=== PATIENT | male | born 1965 | race Caucasian/White ===

== ENCOUNTER → 2017-04-02 06:37 | Outpatient (CLI) | payer OTHER | END | disposition home or self-care (01) | LOC: D.SLEEP 06:37 | DX: G47.33 Obstructive sleep apnea (adult) (pediatric) (principal) ==

== ENCOUNTER 2019-12-14 16:48 | Inpatient (IN) | payer MEDICAID ==
[~2019-12-14] VITALS: Ht 170.2 cm; Wt 122.5 kg
[2019-12-14] MEDS ORDERED: LISINOPRIL40 MG PO (17:03)
[2019-12-14] MEDS ORDERED: GLUCOPHAGE500 MG PO (17:03)
[2019-12-14] MEDS ORDERED: FLOMAX0.4 MG PO (17:03)
[2019-12-14] MEDS ORDERED: CHLORTHALIDONE25 MG PO (17:04)
[2019-12-14] MEDS ORDERED: LIPITOR10 MG PO (17:04)
[2019-12-14] MEDS ORDERED: COREG12.5 MG PO (17:04)
[2019-12-14] MEDS ORDERED: BAYER CHEWABLE81 MG PO (17:04)
[2019-12-14] MEDS ORDERED: ZOLOFT100 MG PO (17:05)
[2019-12-14 17:09] LABS: BASOPHILS 0.5 % (0-2); HEMOGLOBIN 14.9 g/dL (13.5-17.5); IMMATURE GRANULOCYTES 0.1 % (0-5); LYMPHOCYTES 24.7 % (15-50); MCH 29.4 pg (26.0-34.0); MCHC 33.9 g/dL (31.0-37.0); MCV 86.8 fL (80.0-100.0); MEAN PLATELET VOLUME 10.5 fL (7.4-10.4); MONOCYTES 8.4 % (2-11); NEUTROPHILS 64.3 % (40-80); PLATELET COUNT 140 10x3/uL (130-400); RBC 5.07 10x6/uL (4.20-6.10); RDW 13.2 % (11.5-14.5); WBC 7.5 10x3/uL (4.8-10.8)
[2019-12-14 17:17] LABS: INR 0.98 (0.85-1.17); PROTIME 12.9 SECONDS (11.6-15.0)
[2019-12-14 17:18] LABS: APTT 28.3 SECONDS (22.8-39.4); CALC OSMOLALITY 276 mosm/kg (275-300); CALCIUM 8.6 mg/dL (8.5-10.1); CARBON DIOXIDE 28.7 mmol/L (21.0-32.0); CHLORIDE - SERUM 104 mmol/L (98-107); CREATININE - SERUM 0.9 mg/dL (0.6-1.3); GLUCOSE 123 mg/dL (74-106); POTASSIUM - SERUM 4.1 mmol/L (3.5-5.1); SODIUM 138 mmol/L (136-145); UREA NITROGEN 12 mg/dL (7-18); eGFR NON AFRICAN AMERICAN > 90 mL/min (90-120)
[2019-12-14 17:31] LABS: ALBUMIN 3.8 g/dL (3.4-5.0); ALKALINE PHOSPHATASE 76 U/L (30-120); ALT (SGPT) 37 U/L (10-68); AMYLASE - SERUM 34 U/L (25-115); BILIRUBIN - TOTAL 0.44 mg/dL (0.2-1.3); LIPASE 82 U/L (73-393); PRO BNP 61 pg/mL (0-125); PROTEIN - SERUM 7.4 g/dL (6.4-8.2)
[2019-12-14 17:47] LABS: TROPONIN-I < 0.017 ng/mL (0.000-0.060)
[2019-12-14] MEDS ORDERED: METFORMIN HCL500 M1 PO (23:52)
[2019-12-15 01:51] VITALS: BP 138/72; BMI 42.4
[2019-12-15 02:37] LABS: BILIRUBIN NEGATIVE (NEGATIVE); GLUCOSE NEGATIVE (NEGATIVE); KETONE NEGATIVE (NEGATIVE); NITRITE NEGATIVE (NEGATIVE); SPECIFIC GRAVITY 1.015 (1.005-1.020); UROBILINOGEN NORMAL (NORMAL)
[2019-12-15 04:00] VITALS: BP 126/68
[2019-12-15 06:21] LABS: BASOPHILS 0.3 % (0-2); EOSINOPHILS 2.1 % (0-7); HEMATOCRIT 43.5 % (42.0-54.0); HEMOGLOBIN 14.4 g/dL (13.5-17.5); IMMATURE GRANULOCYTES 0.2 % (0-5); LYMPHOCYTES 28.8 % (15-50); MCH 29.5 pg (26.0-34.0); MCHC 33.1 g/dL (31.0-37.0); MEAN PLATELET VOLUME 10.8 fL (7.4-10.4); NEUTROPHILS 60.6 % (40-80); PLATELET COUNT 130 10x3/uL (130-400); RBC 4.88 10x6/uL (4.20-6.10); RDW 13.3 % (11.5-14.5); WBC 6.3 10x3/uL (4.8-10.8)
[2019-12-15 06:22] LABS: MCV 89.1 fL (80.0-100.0)
[2019-12-15 06:38] LABS: ALBUMIN 3.2 g/dL (3.4-5.0); ALKALINE PHOSPHATASE 68 U/L (30-120); ALT (SGPT) 30 U/L (10-68); BILIRUBIN - TOTAL 0.48 mg/dL (0.2-1.3); CALC OSMOLALITY 272 mosm/kg (275-300); CALCIUM 7.9 mg/dL (8.5-10.1); CARBON DIOXIDE 23.4 mmol/L (21.0-32.0); CHLORIDE - SERUM 104 mmol/L (98-107); CREATININE - SERUM 0.8 mg/dL (0.6-1.3); GLUCOSE 89 mg/dL (74-106); POTASSIUM - SERUM 4.2 mmol/L (3.5-5.1); PROTEIN - SERUM 6.1 g/dL (6.4-8.2); SODIUM 137 mmol/L (136-145); UREA NITROGEN 12 mg/dL (7-18); eGFR NON AFRICAN AMERICAN > 90 mL/min (90-120)
--- NOTE | 2019-12-15 08:01 | NUR ---
ADMINISTERED IV ANTIBIOTICS AND PERFORMED ASSESSMENT AT THIS TIME. PT IS LAYING SUPINE IN BED, WITH OFFICER AT BEDSIDE. PT DENIES ANY NEEDS AT THIS TIME. BED IN LOWEST POSITION, BED RAILS X2, CALL LIGHT WITHIN REACH. WILL CONTINUE TO MONITOR.
[2019-12-15 08:26] VITALS: BP 141/66
[2019-12-15 10:13] VITALS: BMI 42.3
--- NOTE | 2019-12-15 12:30 | NUR ---
ADMINISTERED PREOP MEDICATION. TOLERATED WELL. DENIES ANY NEEDS. WILL CONTINUE TO MONITOR.
[2019-12-15 12:47] VITALS: Ht 170.2 cm; Wt 122.5 kg
--- NOTE | 2019-12-15 14:15 | NUR ---
PT STILL OUT WITH SURGERY.
[2019-12-15 16:41] VITALS: BP 145/64
--- NOTE | 2019-12-15 16:42 | NUR ---
RECEIVED PT FROM SURGERY. VITALS OBTAINED, STABLE. WILL CONTINUE TO MONITOR.
[2019-12-15 16:43] VITALS: BP 145/64
--- NOTE | 2019-12-15 17:08 | NUR ---
WHEN PT ARRIVED BACK IN ROOM, I OBTAINED A VITAL MACHINE SITTING IN THE HALLWAY. SHORTLY AFTER ENTERING THE ROOM WITH THE VITAL MACHINE, ABBY RAGHAVENDRA CAME RUSHING INTO THE ROOM AND SNATCHED THE VITALS MACHINE SAY, "THIS IS MY MACHINE YOU CANNOT USE IT, I HAVENT FINISHED MY VITALS." I CONTINUED TO EXPLAIN TO HER THAT I JUST NEEDED TO OBTAIN ONE SET OF VITALS SO THAT SURGERY COULD SIGN OFF ON THE PATIENT, I WOULD RETURN THE MACHINE AND FIND A DIFFERENT ONE TO COMPLETE RECORDING POST OP VITALS. SHE TOOK THE VITAL MACHINE ANYWAYS, WAS VERY RUDE AND HATEFUL TO ME AND THE STAFF FROM SURGERY IN FRONT OF THE PATIENT AND GAGERTRUDE. SHE CONTINUE TO BE HATEFUL AND RUN HER MOUTH IN FRONT OF THE PATIENT STATING, "THIS IS NOT MY JOB, THIS IS A NURSES JOB.", IN RELATION TO OBTAINING A SET OF VITALS. WILL REPORT THIS TO YAMIL MAXWELL, NURSE FOOD AND BEVERAGE ORDER CLERK.
--- NOTE | 2019-12-15 17:36 | NUR ---
I have reviewed this patient and I concur with the Shift Assessment completed by the Licensed Practical Nurse today this shift.
[2019-12-15 20:00] VITALS: BP 151/83
[2019-12-16] VITALS: BP 108/72
[2019-12-16 04:00] VITALS: BP 132/73
[2019-12-16 04:57] LABS: BASOPHILS 0.2 % (0-2); EOSINOPHILS 0.2 % (0-7); HEMATOCRIT 43.7 % (42.0-54.0); HEMOGLOBIN 14.7 g/dL (13.5-17.5); IMMATURE GRANULOCYTES 0.2 % (0-5); LYMPHOCYTES 11.1 % (15-50); MCH 29.2 pg (26.0-34.0); MCHC 33.6 g/dL (31.0-37.0); MEAN PLATELET VOLUME 10.2 fL (7.4-10.4); MONOCYTES 6.8 % (2-11); NEUTROPHILS 81.5 % (40-80); RBC 5.03 10x6/uL (4.20-6.10); RDW 12.8 % (11.5-14.5)
[2019-12-16 05:01] LABS: MCV 86.9 fL (80.0-100.0); PLATELET COUNT 169 10x3/uL (130-400); WBC 9.6 10x3/uL (4.8-10.8)
[2019-12-16 05:21] LABS: CALC OSMOLALITY 277 mosm/kg (275-300); CALCIUM 8.7 mg/dL (8.5-10.1); CHLORIDE - SERUM 101 mmol/L (98-107); GLUCOSE 128 mg/dL (74-106); MAGNESIUM - SERUM 1.9 mg/dL (1.8-2.4); PHOSPHOROUS 4.2 mg/dL (2.5-4.9); POTASSIUM - SERUM 3.9 mmol/L (3.5-5.1); PRO BNP 215 pg/mL (0-125); SODIUM 138 mmol/L (136-145); UREA NITROGEN 12 mg/dL (7-18); eGFR NON AFRICAN AMERICAN 83 mL/min (90-120)
[2019-12-16 05:23] LABS: CARBON DIOXIDE 29.5 mmol/L (21.0-32.0)
--- NOTE | 2019-12-16 07:52 | OP ---
PATIENT NAME: TEVIN PETER MEDICAL RECORD: [id number] :69 LOCATION:[id number] ADMISSION DATE:12/14/19 SURGEON: YIMI FITZPATRICK MD DATE OF OPERATION: 12/15/2019 PREOPERATIVE DIAGNOSIS: Strangulated ventral hernia. POSTOPERATIVE DIAGNOSES: Strangulated ventral hernia. PROCEDURE: Open strangulated ventral hernia repair without mesh. SURGEON: Yimi Fitzpatrick MD SPLICER APPRENTICE: None. BLOOD LOSS: Less than 50 cc. ANESTHESIA: General. COMPLICATIONS: None. The risks, possible complications and alternatives to the procedure were explained to the patient. He elects to proceed. I personally reviewed the CT images prior to the procedure. On CT scan, there did not appear to be bowel involved in the ventral hernia, which was at the umbilicus. There were inflammatory changes within the umbilicus. The risks, possible complications, and alternatives to the procedure were explained to the patient. He elects to proceed. The discussion specifically included, but was not limited to, bleeding requiring emergency reoperation, infection, possibility that mesh may need to be used and the possibility of intestinal resection and the possibility of a colostomy. OPERATIVE COURSE: The patient was conveyed to the operating room electively on 12/15/2019. General anesthesia was induced by the anesthesia staff. The abdomen was sterilely prepped and draped. An incision was accomplished within the umbilicus. I dissected down to the level of the hernia sac, which was incised. There was dark material within the hernia sac. There was necrotic omentum. The necrotic portions of the hernia sac as well. I noted no evidence of strangulation of any bowel, however. I cauterized and then transected portions of the omentum. I excised all of the necrotic omentum that I could identify. I then freshened up around the margins of the hernia defect with electrocautery. Extra fascial dissection was performed excising the connective tissue from around the hernia defect. A [id number] type of herniorrhaphy was then accomplished with a horizontal mattress #1 Prolenes. I then oversewed the fascial closure with running #1 Vicryls. The subdermis was approximated with interrupted 3-0 Vicryls. The skin was approximated with multiple interrupted 3-0 Vicryl Rapide sutures. A sterile dressing was applied. The patient was then extubated and conveyed to post-anesthesia care unit where OPERATIVE REPORT [id number] TEVIN PETER he was in stable condition. We are going to keep him in the hospital overnight and try him on a diet. If he is ever able to tolerate the diet, then I will plan for dismissal back to the custodial tomorrow. As the patient is diabetic, I am going to ask the hospitalist service to give him some help with his diabetes control. Additionally, he is pretty hypertensive as well. TRANSINT:[id number] Voice Confirmation ID: [id number] DOCUMENT ID: [id number] YIMI FITZPATRICK MD at 0752 CC: JACQUELINE CALIX MD [id number] DICTATION DATE: 12/15/19 170 [employer]OCK [employer]S INSPECTOR: 12/15/192115 ADM IN [facility] [place] [address]
[2019-12-16 08:00] VITALS: BP 112/66
[2019-12-16 09:11] VITALS: BP 153/79
--- NOTE | 2019-12-16 10:13 | NUR ---
RESTING IN BED, NO DISTRESS NOTED, IV INFUSING, DRESSING TO LOWER ABD, GUARD ON DUTY, CONT TO MONITOR PAIN
[2019-12-16 13:05] VITALS: BP 130/61
[2019-12-16 16:26] VITALS: BP 112/61
--- NOTE | 2019-12-16 20:30 | NUR ---
RESTING QUEITLY WITH NO DISTRESS NOTED. RESP EVEN AND UNLAOBRED. DRESSING TO ABD INTACT WITHOUT DRAINAGE NOTED.IV TO RIGHT HAND INTACT WITHOUT REDNESS OR EDEMA NOTED. NO COMPLAITNS VOICED. GAURD AT BEDSIDE
[2019-12-17] VITALS: BP 102/63
--- NOTE | 2019-12-17 03:54 | NUR ---
I have reviewed this patient and I concur with the Shift Assessment completed by the Licensed Practical Nurse today this shift.
[2019-12-17 04:00] VITALS: BP 114/61
[2019-12-17 06:14] LABS: BASOPHILS 0.3 % (0-2); EOSINOPHILS 1.7 % (0-7); HEMATOCRIT 42.5 % (42.0-54.0); HEMOGLOBIN 14.1 g/dL (13.5-17.5); IMMATURE GRANULOCYTES 0.3 % (0-5); MCH 29.2 pg (26.0-34.0); MCHC 33.2 g/dL (31.0-37.0); MEAN PLATELET VOLUME 10.3 fL (7.4-10.4); MONOCYTES 9.4 % (2-11); NEUTROPHILS 59.3 % (40-80); PLATELET COUNT 170 10x3/uL (130-400); RBC 4.83 10x6/uL (4.20-6.10); RDW 13.3 % (11.5-14.5)
[2019-12-17 06:19] LABS: WBC 6.6 10x3/uL (4.8-10.8)
[2019-12-17 06:58] LABS: CALC OSMOLALITY 279 mosm/kg (275-300); CALCIUM 8.4 mg/dL (8.5-10.1); CARBON DIOXIDE 29.1 mmol/L (21.0-32.0); CHLORIDE - SERUM 102 mmol/L (98-107); CREATININE - SERUM 0.9 mg/dL (0.6-1.3); GLUCOSE 94 mg/dL (74-106); MAGNESIUM - SERUM 2.2 mg/dL (1.8-2.4); PHOSPHOROUS 4.1 mg/dL (2.5-4.9); POTASSIUM - SERUM 3.6 mmol/L (3.5-5.1); SODIUM 139 mmol/L (136-145); UREA NITROGEN 19 mg/dL (7-18); eGFR NON AFRICAN AMERICAN > 90 mL/min (90-120)
[2019-12-17 08:00] VITALS: BP 138/61
--- NOTE | 2019-12-17 09:27 | NUR ---
UP IN CHAIR IN ROOM, NO DISTRESS NOTED, GUARD IN ROOM WITH PT, IV INFUSING, TAKING PO WITH EASE, GOOD RESULTS LAST HS FROM [facility]X
[2019-12-17 16:00] VITALS: BP 144/65
--- NOTE | 2019-12-17 17:26 | NUR ---
REPORT CALLED TO MS GUZMAN IN MEDICAL UNIT AT [facility], IV REMOVED, TIP INTACT, AWAITING RIDE ARRANGED BY GUARD
--- NOTE | 2019-12-17 19:06 | NUR ---
WALKED FROM HOSPITAL WITH [employer] PAPERS IN HAND
== END 2019-12-17 19:06 | DRG 354 ==
LOC: D.ER 16:48 → D.MS 20:15
PROVIDERS: Family Medicine; Internal Medicine Nephrology; ADMIT Surgery; ATTEND Surgery
PROC: 0WQF0ZZ Repair Abdominal Wall, Open Approach (ICD-10-PCS; principal; 2019-12-15 13:00)
DX: K42.9 Umbilical hernia without obstruction or gangrene (principal); Z68.41 Body mass index [BMI] 40.0-44.9, adult; I10 Essential (primary) hypertension; E78.5 Hyperlipidemia, unspecified; N40.0 Benign prostatic hyperplasia without lower urinary tract symptoms; I11.0 Hypertensive heart disease with heart failure; I50.9 Heart failure, unspecified; F32.9 Major depressive disorder, single episode, unspecified; E11.9 Type 2 diabetes mellitus without complications; E66.01 Morbid (severe) obesity due to excess calories